=== PATIENT | male | born 1975 | race Caucasian/White ===

== ENCOUNTER 2017-01-07 16:16 | Observation (INO) | payer OTHER ==
--- NOTE | ~2017-01-07 | HP ---
Unit #: [id number] #: [id number] Patient: ADRIÁN BLAKE [id number] [address] [place], [place] [address] [id number] I MR#: [id number] NAME: ADRIÁN BLAKE ROOM: 224 Age: 41 Sex: M Admission Date: 01/07/2017 : 1975 Attending Physician: Wei Pearl III, M.D. Primary Care Physician: No Primary Care Physician HISTORY AND PHYSICAL HISTORY OF PRESENT ILLNESS Mr. Blake is a 41-year-old, white male with IV drug abuse, methamphetamine, with large abscess on the right AC space. It needs to be opened, drained, and cleaned out. ALLERGIES None. MEDICATIONS None, except for pain medication. He is also periodically taking Cipro and Flomax for some type of issue. PAST MEDICAL HISTORY He has no other past medical history. He has not had any previous surgeries. SOCIAL HISTORY He is a one pack per day smoker. Does drink alcohol and obviously uses illicit drugs. REVIEW OF SYSTEMS He denies any major cardiovascular, respiratory, renal, or metabolic systems review. He is a non-diabetic. EXAMINATION GENERAL APPEARANCE: Cooperative, alert, white male. VITAL SIGNS: Temperature 99, pulse 60, respirations 20, and blood pressure 115/60. HEENT: ENT are clear. There is no jaundice. Pupils are equal and reactive to light. CHEST: Grossly clear. CARDIAC: Rhythm is regular. ABDOMEN: Soft and nontender. EXTREMITIES: Right arm shows large, foul-smelling abscess draining in the antecubital space. It cannot be really touched to examine any extensively. No clubbing, cyanosis, or edema. IMPRESSION Large right AC abscess. Needs to be opened, drained, and cleaned out. Risks have been explained to the patient and he understands. Dictated by Unit #: [id number] #: [id number] Patient: ADRIÁN BLAKE Jerry Avery/bruce TD: 01/08/2017 06:32 JOB #: [id number] HISTORY AND PHYSICAL Page 1 of 1 X Rowdy Pereira MD HISTORY AND PHYSICAL
--- NOTE | ~2017-01-07 | OR ---
Unit #: [id number] #: [id number] Patient: ADRIÁN ESCAMILLA [id number] [address] [place], [place] [address] [id number] I MR#: [id number] NAME: ADRIÁN ESCAMILLA ROOM: 224 Date of Procedure: 01/08/2017 Admission Date: 01/07/2017 Surgeon: Govind Jauregui Jr., M.D. : 1975 Attending Physician: Wei Pearl III, M.D. Primary Care Physician: Darling Primary Care Physician PROCEDURE OPERATIVE NOTE INDICATIONS FOR PROCEDURE The patient is a 41-year-old white male, who is a drug abuser, who was injecting his arm several days ago on the right side and has developed severe cellulitis with abscess formation in the right antecubital fossa. He was brought into the operating room at this time for incision and drainage of this under general anesthesia. He understands the procedure including the risks including that of ongoing infection and consents. PREOPERATIVE DIAGNOSIS Abscess with cellulitis of the right antecubital fossa. POSTOPERATIVE DIAGNOSIS Abscess with cellulitis of the right antecubital fossa. The abscess did extend down deep to the fascia of the muscle. ANESTHESIA General with LMA. SURGEON Dr. Govind Jauregui Jr. PROCEDURE PERFORMED Incision, drainage and sharp excisional debridement using a #10 blade scalpel from the skin down to the fascia of the muscle. PROCEDURE The patient was positioned in the supine position. After being anesthetized with LMA, was prepped and draped in routine fashion for incision and drainage of the abscess of his right arm. Hemostat was introduced in the open portion of he wound and this wound tunneled both to the medial and lateral aspects. The wound was then completely opened up with skin being excised with a #10 blade scalpel down to the deeper subcu tissue. After all necrotic tissue was moved, the wound was irrigated. Hemostasis achieved with Bovie cautery. 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 It was ligated proximal and distal with 2-0 Vicryl stick tie. After total hemostasis was achieved, the wound was packed open with Betadine moist dry dressings. Sterile compressive dressing was applied externally. Estimated blood loss less than 30 mL. The patient received less than 100 mL crystalloid solution during the procedure. Sponge and instrument counts correct x3. No drains used, no complications. The patient was taken to recovery room with stable vital signs under satisfactory condition. Unit #: [id number] #: [id number] Patient: ADRIÁN ESCAMILLA Dictated by... Govind Jauregui Jr., M.D. KANIKA/peyton TD: 01/08/2017 12:33 JOB #: [id number] PROCEDURE OPERATIVE NOTE Page 1 of 1 X Govind Jauregui MD X PROCEDURE OPERATIVE NOTE
--- NOTE | ~2017-01-07 | CR94 ---
[facility] A Service of [facility] & [facility] RADIOLOGY TEXT RESULTS PATIENT: ADRIÁN ESCAMILLA LOCATION: A : [birth year] UNIT #: [id number] AGE: [address]: Wei Pearl III, MD SEX: M ORDER DR: [id number] [place], [place] [address] [id number] MR#: [id number] #: [id number] NAME: ADRIÁN ESCAMILLA : 1975 SEX: M STUDY DATE/TIME: 01/07/2017 17:12 UNIT: [facility] ROOM: [facility] STUDY DESCRIPTION: CR Elbow Min 3 Views Rt Attending Physician: Wei Pearl III, M.D. Ordering Physician: Saeed Neely M.D. Primary Care Physician: Primary Care Physician No MEDICAL IMAGING REPORT This report is preliminary unless electronic signature is present EXAM Right elbow, 3 views COMPARISON None INDICATIONS 41-year-old male with right anterior elbow pain and suspected abscess for 2 days. IV drug use. FINDINGS Bones are anatomically aligned. No radiopaque foreign body or subcutaneous gas. No evidence of osteomyelitis or elbow effusion. IMPRESSION 1. No acute fracture, dislocation or elbow effusion. 2. No evidence of osteomyelitis. No radiopaque foreign body or subcutaneous gas. Dictated by... Gagan Hirsch M.D. THIS IS AN ELECTRONICALLY VERIFIED REPORT Gagan Hirsch M.D. at 01/12/2017 10:33 PM COLTEN/julianna TD: 01/07/2017 21:33 JOB #: [id number] MEDICAL IMAGING REPORT Page 1 of 1 COPY
--- NOTE | ~2017-01-07 | DS ---
Unit #: [id number] #: [id number] Patient: ADRIÁN ESCAMILLA [id number] [address] [place], [place] [address] [id number] I MR#: [id number] NAME: ADRIÁN ESCAMILLA ROOM: 224 Age: 41 Sex: M Admission Date: 01/07/2017 : 1975 Discharge Date: 01/10/2017 Attending Physician: Wei Pearl III, M.D. Primary Care Physician: No Primary Care Physician DISCHARGE SUMMARY ADMITTING AND FINAL DIAGNOSES Large abscess of the right antecubital fossa secondary to IV drug abuse. SECONDARY DIAGNOSIS None. BRIEF SUMMARY The patient is a 41-year-old white male who injects drugs, developed an abscess of the right antecubital fossa after a drug injection several days prior to this admission. PAST MEDICAL HISTORY Not remarkable except for abusing drugs and alcohol. There is no other specific history. HOSPITAL COURSE The patient was admitted and underwent incision and drainage of his abscess after getting IV antibiotics. Postop the cellulitis is completely cleared from his arm. There is an open wounds approximately 3 x 6 cm and this is being packed with Dakin's moist dry dressings. "The plan will be to discharge the patient home on [place] 10 mg/325 one or two p.o. q. 4 to 6 h p.r.n. pain. He will be packing his wound twice a day, avoiding any drug injections or illicit drugs and keeping his arm elevated with some range of motion exercises. He will be returning to the office in approximately one week for further followup. He will be on a regular home diet. He is afebrile in a satisfactory condition. Dictated by... Govind Jauregui Jr., M.D. KANIKA/faith TD: 01/12/2017 12:26 JOB #: [id number] Unit #: [id number] #: [id number] Patient: ADRIÁN ESCAMILLA DISCHARGE SUMMARY Page 1 of 1 X Govind Jauregui MD X DISCHARGE SUMMARY
[~2017-01-07 16:16] MED LIST: ANEXSIA 5/325 M1 TA1 PO; CIPRO PO; DEPAKOTE PO; FLEXERIL PO; FLOMAX0.4 M1 PO; NO MEDICATIONS
[2017-01-07 18:02] LABS: BASOPHIL% 0.3 % (0-2.5); EOSINOPHIL% 0.1 % (0.0-7.0); HEMATOCRIT 41.7 % (38.0-50.0); LYMPHOCYTE# 2.3 X10e3 (1.0-3.5); LYMPHOCYTE% 16.5 % (17.0-45.0); MEAN CELL VOLUME 90.1 FL (83-96); MEAN CORPUSCULAR HEMOGLOBIN 30.2 PG (28-34); MEAN CORPUSCULAR HGB CONC 33.6 g/dL (30-36); MEAN PLATELET VOLUME 8.8 FL (6.5-11.5); MONOCYTE# 1.2 X10e3 (0-1.0); MONOCYTE% 8.8 % (3.0-12.0); NEUTROPHIL# 10.4 X10e3 (1.5-7.1); NEUTROPHIL% 74.3 % (40-75); PLATELET COUNT 211 X10e3 (140-420); RED BLOOD COUNT 4.62 X10e (3.90-5.60); RED CELL DISTRIBUTION WIDTH 13.8 % (11.0-15.5)
[2017-01-07 18:03] LABS: DIFF IND NO
[2017-01-07 18:34] LABS: ALBUMIN SERUM 3.9 g/dL (3.5-5.0); BILIRUBIN, DIRECT 0.7 mg/dL (0.0-0.2); BILIRUBIN,INDIRECT 1.9 mg/dL (0.0-0.9); BILIRUBIN,TOTAL 2.6 mg/dL (0.2-2.0); BUN/CREATININE RATIO 7.77; CALCIUM SERUM 8.7 mg/dL (8.4-10.2); CREATININE SERUM 0.9 mg/dL (0.6-1.4); GLOM FILT RATE Estimated 107.2 mL/min (>60); POTASSIUM 3.3 mmol/L (3.5-5.1); PROTEIN TOTAL SERUM 8.1 g/dL (6.0-8.3)
[2017-01-10 06:56] LABS: CREATININE SERUM 0.5 mg/dL (0.6-1.4); GLOM FILT RATE Estimated 136.6 mL/min (>60)
[2017-01-10] MEDS ORDERED: HYDROCODON-ACE1 EAC5 PO (09:35)
[2017-01-10] MEDS ORDERED: DAKIN'S MODIF1000 ML TOP (09:36)
[2017-01-13 11:25] LABS: HA AB IGM (HEPPAN) Nonreactive (()); HB CORE AB IGM (HEPPAN) Reactive (Nonreactive); HB S AG (HEPPAN) Nonreactive (Nonreactive); HEP C AB (HEPPAN) Reactive (Nonreactive)
== END 2017-01-10 15:09 | disposition home or self-care (01) ==
LOC: CED 16:16 → CEDOF 17:30 → CED 17:50 → CEDOF 17:50 → C2A 18:24 → CEDOF 18:24 → C2A 01-10 15:09
PROVIDERS: Emergency Medicine; Surgery
DX: L02.413 Cutaneous abscess of right upper limb (principal); F15.10 Other stimulant abuse, uncomplicated; F10.10 Alcohol abuse, uncomplicated; F17.200 Nicotine dependence, unspecified, uncomplicated
CPT/HCPCS: 73080; 80048; 80074; 80076; 80202; 82565; 84520; 85025; 87040; 87070; 87075; 87077; 87205; 87522; 87806; 96365; 96366; 96375; 96376; 99285; G0378; J2250; J2270; J2405; J3010; J3370

== ENCOUNTER 2017-01-30 09:27 | Emergency (ER) | payer OTHER ==
[~2017-01-30 09:27] MED LIST changes: +DAKIN'S MODIF1000 ML TOP; +HYDROCODON-ACE1 EAC5 PO
== END 2017-01-30 11:45 | disposition home or self-care (01) ==
LOC: CED 09:27 → CFTX 09:27
DX: L02.411 Cutaneous abscess of right axilla (principal); Z86.14 Personal history of Methicillin resistant Staphylococcus aureus infection; F17.210 Nicotine dependence, cigarettes, uncomplicated
CPT/HCPCS: 99283